=== PATIENT | male | born 1975 | race Caucasian/White ===

== ENCOUNTER 2023-02-08 | Emergency (ER) | payer BC ==
[2023-02-08 01:16] LABS: #Basophils 0.1 10x3/uL (0.0-0.2); #Eosinphils 0.5 10x3/uL (0.0-0.5); #Monocytes 1.1 10x3/uL (0.0-1.1); #Neutrophils 7.3 10x3/uL (1.5-8.4); %Basophils 0.8 % (0.0-2.0); %Eosinophils 4.4 % (0.0-6.0); %Lymphocytes 26.4 % (18.0-47.0); %Monocytes 9.2 % (0.0-10.0); Hemoglobin 17.2 g/dL (13.5-17.5); Mean Corpuscular HGB CONC 33.7 g/dL (32.0-36.0); Mean Corpuscular Hemoglobin 28.9 pg (27.0-33.0); Mean Corpuscular Volume 85.7 fl (81.2-95.1); Mean Platelet Volume 9.2 fl (7.4-10.4); Platelet Count 321 10x3/uL (150-450); RBC Distribution Width 12.2 % (11.5-14.5); Red Blood Cell (RBC) Count 5.95 10x6/uL (4.32-5.72); White Blood Cell (WBC) Count 12.4 10x3/uL (3.5-10.5)
[2023-02-08 01:20] LABS: ALT (SGPT) 16 U/L (8-55); AST (SGOT) 16 U/L (5-34); Albumin 3.7 g/dL (3.5-5.0); Alkaline Phosphatase 62 U/L (40-110); Anion Gap 12 mmol/L (10-20); BUN (Urea Nitrogen) 13 mg/dL (8.9-20.6); Bilirubin, Total 0.2 mg/dL (0.2-1.2); Calc. Creatinine Clearance 0 mL/min (70-130); Calcium 8.6 mg/dL (7.8-10.44); Carbon Dioxide 25 mmol/L (22-29); Chloride 108 mmol/L (98-107); Estimated GFR 99; Globulin 1.7 g/dL (2.4-3.5); Glucose 139 mg/dL (70-105); Protein, Total 5.4 g/dL (6.0-8.3); Sodium 141 mmol/L (136-145)
[2023-02-08] MEDS ORDERED: Iopamidol 370 76% 100 ML VIAL ONE (09:17)
== END 2023-02-08 03:13 | disposition home or self-care (01) ==
LOC: CSHERS
DX: G62.9 Polyneuropathy, unspecified (principal); I10 Essential (primary) hypertension
CPT/HCPCS: 70450; 70496; 70498; 80053; 84484; 85025; 93005; Q9967

== ENCOUNTER 2023-06-11 16:56 | Observation (INO) | payer BC ==
[2023-06-11] MEDS ORDERED: Ondansetron ODT 4 MG TAB PO PRN (17:06)
[2023-06-11] MEDS ORDERED: Ondansetron PF 4 MG/2 ML Vial IVP PRN (17:06)
[2023-06-11] MEDS ORDERED: Guaifenesin DM 100-10/5 ML UDCUP PO PRN (17:06)
[2023-06-11] MEDS ORDERED: Senokot S 8.6-50 MG TAB PO PRN (17:06)
[2023-06-11] MEDS ORDERED: Acetaminophen 325 MG TAB PO PRN (17:06)
[2023-06-11] MEDS ORDERED: Acetaminophen 650 MG Suppository PR PRN (17:06)
[2023-06-11] MEDS ORDERED: hydrALAZINE 20 MG/ML VIAL SLOW IVP PRN (18:16)
[2023-06-11] MEDS ORDERED: Labetalol HCl 100 MG/20 ML VIAL SLOW IVP PRN (18:16)
[2023-06-11] MEDS ORDERED: Lisinopril 20 MG TAB PO SCH (18:30)
[2023-06-11 19:04] VITALS: BMI 31.8
[2023-06-11] MEDS: Mupirocin 2% Ointment 22 GM Tube TOP SCH (21:45)
[2023-06-12 06:55] LABS: Hematocrit 48.4 % (38.8-50.0); Hemoglobin 16.1 g/dL (13.5-17.5); Red Blood Cell (RBC) Count 5.57 10x6/uL (4.32-5.72); White Blood Cell (WBC) Count 9.7 10x3/uL (3.5-10.5)
[2023-06-12 06:56] LABS: #Basophils 0.1 10x3/uL (0.0-0.2); #Eosinphils 0.5 10x3/uL (0.0-0.5); #Monocytes 0.9 10x3/uL (0.0-1.1); %Basophils 0.6 % (0.0-2.0); %Eosinophils 4.8 % (0.0-6.0); %Lymphocytes 22.1 % (18.0-47.0); %Monocytes 9.7 % (0.0-10.0); %Neutrophils 62.5 % (40.0-75.0); Mean Corpuscular HGB CONC 33.3 g/dL (32.0-36.0); Mean Corpuscular Volume 86.9 fl (81.2-95.1); Mean Platelet Volume 9.7 fl (7.4-10.4); Platelet Count 261 10x3/uL (130-400); RBC Distribution Width 12.5 % (11.5-14.5)
[2023-06-12 06:57] LABS: Mean Corpuscular Hemoglobin 28.9 pg (27.0-33.0)
[2023-06-12 07:10] LABS: Anion Gap 12 mmol/L (10-20); BUN (Urea Nitrogen) 14 mg/dL (8.9-20.6); Calc. Creatinine Clearance 163 mL/min (70-130); Calcium 8.5 mg/dL (7.8-10.44); Carbon Dioxide 23 mmol/L (22-29); Chloride 110 mmol/L (98-107); Cholesterol 134 mg/dl (< 200 Desired); Estimated GFR 109; Glucose 117 mg/dL (70-105); HDL Cholesterol 27 mg/dL (>60 Neg Risk); LDL Cholesterol, Calculated 84 mg/dL; Magnesium 1.9 mg/dL (1.6-2.6); Potassium 3.8 mmol/L (3.5-5.1); Sodium 141 mmol/L (136-145); Triglycerides 114 mg/dL (Less than 150)
[2023-06-12] MEDS ORDERED: Aspirin 325 MG TAB PO SCH (09:00)
[2023-06-12] MEDS ORDERED: Lisinopril 20 MG TAB PO SCH (09:00)
[2023-06-12] MEDS: Mupirocin 2% Ointment 22 GM Tube TOP SCH (11:32)
[2023-06-12 12:49] LABS: Hemoglobin A1c 5.7 % (4.0-6.0)
[2023-06-12 16:39] VITALS: BP 126/84; TEMP 98
== END 2023-06-12 16:25 | disposition home or self-care (01) ==
LOC: CSHTELE 16:56 → INTOOBSV 16:56
PROVIDERS: ADMIT Emergency Medicine; ATTEND Hospitalist
DX: R51.9 Headache, unspecified (principal); R47.89 Other speech disturbances; R73.03 Prediabetes; I10 Essential (primary) hypertension; F32.A Depression, unspecified; F17.210 Nicotine dependence, cigarettes, uncomplicated; A49.1 Streptococcal infection, unspecified site; E66.9 Obesity, unspecified; Z68.31 Body mass index [BMI] 31.0-31.9, adult; Z79.82 Long term (current) use of aspirin; Z79.899 Other long term (current) drug therapy
CPT/HCPCS: 36415; 70551; 80048; 80061; 83036; 83735; 85025; 93306; 94760; G0378

== ENCOUNTER 2024-11-26 19:56 | Emergency (ER) | payer BC ==
[2024-11-26] MEDS ORDERED: hydrALAZINE 20 MG/ML VIAL ONE (22:41)
[2024-11-26 23:21] LABS: Anion Gap 11 mmol/L (10-20); BUN (Urea Nitrogen) 17 mg/dL (8.9-20.6); Calc. Creatinine Clearance 0 mL/min (70-130); Calcium 9.2 mg/dL (7.8-10.44); Carbon Dioxide 25 mmol/L (22-29); Chloride 107 mmol/L (98-107); Estimated GFR 103; Glucose 112 mg/dL (70-105); Potassium 4.1 mmol/L (3.5-5.1); Sodium 139 mmol/L (136-145)
[2024-11-26 23:29] LABS: Troponin I Less than 0.010 ng/mL (< 0.028)
== END 2024-11-27 00:52 | disposition home or self-care (01) ==
LOC: CSHERS 19:56
DX: I16.1 Hypertensive emergency (principal); I10 Essential (primary) hypertension; G40.909 Epilepsy, unspecified, not intractable, without status epilepticus; F17.210 Nicotine dependence, cigarettes, uncomplicated; Z79.82 Long term (current) use of aspirin; Z79.899 Other long term (current) drug therapy
CPT/HCPCS: 36415; 80048; 84484; 93005; 96374; J0360